=== PATIENT | male | born 1955 | race Asian ===

== ENCOUNTER 2016-10-09 10:32 | Outpatient (CLI) | payer OTHER | END 2016-10-09 19:48 | disposition home or self-care (01) | LOC: SRD 10:32 | DX: Z01.812 Encounter for preprocedural laboratory examination (principal); J44.9 Chronic obstructive pulmonary disease, unspecified; I10 Essential (primary) hypertension; E78.4 Other hyperlipidemia | CPT/HCPCS: 71020-TC ==